=== PATIENT | female | born 1960 | race Caucasian/White ===

== ENCOUNTER 2017-11-25 15:44 | Emergency (ER) | payer OTHER ==
[2017-11-25 16:00] VITALS: RESP 18
--- NOTE | 2017-11-25 17:40 | C.PDOC ---
History Of Present Illness 57 year old female presents to the ED for evaluation of pain and swelling to her chest that started 5-6 days ago. Patient denies fever, nausea, vomit, CP, SOB, headache, HX of HTN, weakness, numbness. Time Seen by Provider: 11/25/17 17:17 Chief Complaint (Nursing): Abnormal Skin Integrity History Per: Patient History/Exam Limitations: no limitations Onset/Duration Of Symptoms: Days Current Symptoms Are (Timing): Still Present Location Of Injury: Left: Chest Quality Of Symptoms: Painful, Swollen Recent travel outside of the [place]: No Additional History Per: Patient Past Medical History Reviewed: Historical Data, Nursing Documentation, Vital Signs Vital Signs: Last Vital Signs Temp 98.0 F 11/25/17 18:44 Pulse 61 11/25/17 18:44 Resp 18 11/25/17 18:44 BP 166/81 H 11/25/17 18:44 Pulse Ox 97 11/25/17 18:55 - Medical History PMH: No Chronic Diseases Surgical History: No Surg Hx Family History: States: Unknown Family Hx - Social History Hx Alcohol Use: No Hx Substance Use: No - Immunization History Hx Tetanus Toxoid Vaccination: No Hx Influenza Vaccination: No Hx Pneumococcal Vaccination: No Review Of Systems Constitutional: Negative for: Fever, Chills Cardiovascular: Negative for: Chest Pain Respiratory: Negative for: Shortness of Breath Gastrointestinal: Negative for: Nausea, Vomiting Skin: Positive for: Other (swelling to chest) Neurological: Negative for: Weakness, Numbness Physical Exam - Physical Exam Appears: Non-toxic, No Acute Distress Skin: Normal Color, Warm, Dry Head: Atraumatic, Normacephalic Eye(s): bilateral: Normal Inspection Chest: Symmetrical, Other (3x2 cm area of swelling, redness to the left proximal breast. Areais indurated, erythematous with a scab and not fluctant) Cardiovascular: Rhythm Regular, No Murmur Respiratory: Normal Breath Sounds, No Rales, No Rhonchi, No Wheezing Gastrointestinal/Abdominal: Soft, No Tenderness, No Guarding, No Rebound Extremity: Normal ROM, No Tenderness, No Swelling Pulses: Left Radial: Normal, Right Radial: Normal Neurological/Psych: Oriented x3, Normal Speech Gait: Steady ED Course And Treatment O2 Sat by Pulse Oximetry: 97 (ON RA) Pulse Ox Interpretation: Normal Medical Decision Making Medical Decision Making: Plan: * Keflex 500 mg PO * Toradol 30 mg IM * BActrim 1 tab PO 1848 pt with decreased pain and bp decreased as well, will d/c with bactrim and keflex, f/u pmd in 2 days or return to er for wound check Disposition Counseled Patient/Family Regarding: Diagnosis, Need For Followup, Rx Given - Disposition Referrals: Wilmar Campos MD [Staff Provider] - Disposition: HOME/ ROUTINE Disposition Time: 18:49 Condition: IMPROVED Additional Instructions: Please apply warm compresses to painful area on chest wall several times a day. Please take antibiotics as prescribed and Tylneol for pain. Please follow up with your doctor in 2 days or return to ER in 2 days for a wound check. Return to ER sooner if redness extends beyond the line drawn around redness today or fever develops. Tylenol or Motrin for pain. Prescriptions: Cephalexin [Keflex] 500 mg PO Q6 #28 capsule Sulfamethoxazole/Trimethoprim [Bactrim DS 800 mg-160 mg] 1 tab PO BID #20 tab Instructions: Skin Abscess Forms: [facility] (Sing[place]an), General Discharge Instructions - Clinical Impression Clinical Impression: Cutaneous abscess of chest wall - PA / MEDICAL BILLING ASSOCIATE / Resident Statement MD/DO has reviewed & agrees with the documentation as recorded. - Scribe Statement The provider has reviewed the documentation as recorded by the Scribe Kyle Clifford All medical record entries made by the Eugenieibvinny were at my direction and personally dictated by me. I have reviewed the chart and agree that the record accurately reflects my personal performance of the history, physical exam, medical decision making, and the department course for this patient. I have also personally directed, reviewed, and agree with the discharge instructions and disposition.
[2017-11-25] MEDS ORDERED: Tmp-Smz 800 mg-160 mg DS Tab PO STA (17:49)
[2017-11-25] MEDS ORDERED: Tmp-Smz 800 mg-160 mg DS Tab ONE (18:01)
[2017-11-25 18:44] VITALS: BP 166/81; PULSE 61; TEMP 98
[2017-11-25 18:53] VITALS: O2SAT 97
== END 2017-11-25 19:01 | disposition home or self-care (01) ==
LOC: C.ER 15:44
DX: L02.213 Cutaneous abscess of chest wall (principal)
CPT/HCPCS: 87070; 96372; 99284; J1885

== ENCOUNTER 2018-10-02 15:45 | Emergency (ER) | payer OTHER ==
--- NOTE | 2018-10-02 16:30 | C.PDOC ---
History Of Present Illness 58 year old female with a PMHx of uncontrolled hypertension and diabetes presents for bilateral knee pain, worsening over the past 2-3 months. She denies any recent trauma or fall. Patient reports history of arthritis, and notes her knee pain has progressively worsened for past few months. notes that she is having increased difficulty ascending stairs. Patient has tried taking Advil and applying heating pads with minimal relief. She also reports arthritic pain in her right shoulder and low back. On arrival to the ED patients blood pressure was found to be 205/105. states patient was seen for systolic BP of 195 last year, after which she was referred to [facility] emergency department and took unknown medication for 3 months. She stopped taking the medication about 1 year ago. Patient denies having any palpitations, visual changes, chest pain, SOB, dizziness, headaches, weakness, or numbness. Time Seen by Provider: 10/02/18 16:00 Chief Complaint (Nursing): Lower Extremity Problem/Injury History Per: Patient History/Exam Limitations: no limitations Onset/Duration Of Symptoms: Days Current Symptoms Are (Timing): Worse Past Medical History Reviewed: Historical Data, Nursing Documentation, Vital Signs Vital Signs: Last Vital Signs Temp 97.5 F L 10/02/18 15:50 Pulse 74 10/02/18 15:50 Resp 16 10/02/18 15:50 BP 205/105 H 10/02/18 15:50 Pulse Ox 94 L 10/02/18 15:50 - Medical History PMH: Arthritis, Diabetes (pt denies), HTN (pt denies) Denies: Cardiac Aneurysm Family History: States: Diabetes, Hypertension - Social History Hx Tobacco Use: No Hx Alcohol Use: No Hx Substance Use: No - Immunization History Hx Tetanus Toxoid Vaccination: No Hx Influenza Vaccination: No Hx Pneumococcal Vaccination: No Review Of Systems Constitutional: Negative for: Fever, Chills Eyes: Negative for: Vision Change Cardiovascular: Negative for: Chest Pain, Palpitations Respiratory: Negative for: Cough, Shortness of Breath Gastrointestinal: Negative for: Nausea, Vomiting, Abdominal Pain Genitourinary: Negative for: Dysuria, Frequency Musculoskeletal: Positive for: Shoulder Pain (right), Back Pain (low), Leg Pain (bilateral knee pain) Neurological: Negative for: Weakness, Numbness, Headache, Dizziness Physical Exam - Physical Exam Appears: Well, Non-toxic, No Acute Distress Skin: Warm, Dry Head: Atraumatic, Normacephalic Eye(s): bilateral: Normal Inspection, PERRL, EOMI Oral Mucosa: Moist Neck: Normal ROM Chest: Symmetrical Cardiovascular: Rhythm Regular, No Murmur Respiratory: Normal Breath Sounds, No Rales, No Rhonchi, No Wheezing Gastrointestinal/Abdominal: Soft, No Tenderness, No Distention Back: No CVA Tenderness, No Vertebral Tenderness Extremity: Tenderness (Mild tenderness to bilateral knees), No Calf Tenderness, No Swelling (to lower extremities) Extremity: Bilateral: Atraumatic, Normal Color And Temperature Pulses: Left Dorsalis Pedis: Normal, Right Dorsalis Pedis: Normal Neurological/Psych: Oriented x3, Normal Speech, Normal Motor, Normal Sensation Gait: Steady ED Course And Treatment - Laboratory Results Result Diagrams: 10/02/18 16:33 10/02/18 16:33 O2 Sat by Pulse Oximetry: 94 (on room air) Pulse Ox Interpretation: Normal Medical Decision Making Medical Decision Making: Impression: Uncontrolled hypertension and diabetes, Chronic knee pain Plan: - CMP - CBC - 5 mg PO norvasc - 30 mg IM toradol Labs reviewed and unremarkable. On re-eval the pain is mildly improved. BP improved. Patient ambulatory. She is stable for discharge and Rx given Disposition Counseled Patient/Family Regarding: Diagnosis, Need For Followup, Rx Given - Disposition Referrals: Wilmar Campos MD [Staff Provider] - Disposition: HOME/ ROUTINE Disposition Time: 17:11 Condition: STABLE Additional Instructions: Please take medications as prescribed to control your high blood pressure and diabetes Take Naproxen for pain as needed Follow up with your primary physician. Prescriptions: amLODIPine [Norvasc] 5 mg PO DAILY #30 tab metFORMIN [glucOPHAGE] 500 mg PO BID #60 tab Naproxen 500 mg PO Q12 PRN #30 tab PRN Reason: Pain, Moderate (4-7) Instructions: High Blood Pressure (DC), Osteoarthritis (DC) Forms: [facility] (Mosotho) - POA Present On Arrival: None - Clinical Impression Clinical Impression: Arthritis, Hypertension, uncontrolled - PA / PHYSICAL MEDICINE PHYSICIAN / Resident Statement MD/DO has reviewed & agrees with the documentation as recorded. - Scribe Statement The provider has reviewed the documentation as recorded by the Scribvinny Sawyer All medical record entries made by the Scribe were at my direction and personally dictated by me. I have reviewed the chart and agree that the record accurately reflects my personal performance of the history, physical exam, medical decision making, and the department course for this patient. I have also personally directed, reviewed, and agree with the discharge instructions and disposition.
[2018-10-02 16:44] LABS: HEMOGLOBIN 13.9 g/dL (11.0-16.0); MEAN CELL VOLUME 89.7 fL (81.0-99.0); MEAN CORPUSCULAR HGB CONC 34.6 g/dL (33.0-37.0); MEAN PLATELET VOLUME 8.5 fL (7.2-11.7); RBC 4.49 Mil/uL (3.80-5.20); RED CELL DISTRIBUTION WIDTH 12.8 % (11.5-14.5); WHITE BLOOD COUNT 5.7 K/uL (4.8-10.8)
[2018-10-02 17:03] LABS: ALB/GLOB RATIO 1.5 (1.0-2.1); ALBUMIN 4.6 g/dL (3.5-5.0); ALT/SGPT 15 U/L (9-52); AST/SGOT 39 U/L (14-36); BLOOD UREA NITROGEN 13 mg/dL (7-17); CALCIUM 9.3 mg/dl (8.6-10.4); GFR NON-AFRICAN AMERICAN > 60
[2018-10-02 17:37] VITALS: BP 143/78; PULSE 89; RESP 17; TEMP 98.3
[2018-10-02 17:56] VITALS: O2SAT 94
== END 2018-10-02 17:44 | disposition home or self-care (01) ==
LOC: C.ER 15:45
DX: M13.862 Other specified arthritis, left knee (principal); M13.861 Other specified arthritis, right knee; I10 Essential (primary) hypertension
CPT/HCPCS: 80053; 85027; 96374; 99283; J1885